=== PATIENT | female | born 1980 | race Caucasian/White ===

== ENCOUNTER 2017-05-24 11:39 | Outpatient (CLI) | payer OTHER | END 2017-05-24 17:00 | disposition home or self-care (01) | LOC: MAMO-SONO 11:39 | DX: N60.11 Diffuse cystic mastopathy of right breast (principal); N60.12 Diffuse cystic mastopathy of left breast; R10.2 Pelvic and perineal pain ==

== ENCOUNTER 2017-07-06 10:11 | Outpatient (CLI) | payer OTHER | END 2017-07-06 11:16 | disposition home or self-care (01) | LOC: LAB 10:11 | DX: Z11.59 Encounter for screening for other viral diseases (principal) ==

== ENCOUNTER → 2017-07-06 | Outpatient (CLI) | payer OTHER ==
[~2017-07-06] MED LIST: SYNTHROID50 MCG
== END | disposition home or self-care (01) ==
LOC: PPHC 08:48
DX: Z00.00 Encounter for general adult medical examination without abnormal findings (principal)